=== PATIENT | male | born 1990 ===

== ENCOUNTER 2024-05-31 17:14 | Emergency (ER) | payer OTHER, SELFPAY ==
[2024-05-31] VITALS (9 sets, daily range): BP systolic 131–164; BP diastolic 70–89; PULSE 111–121; BMI 25.3
--- NOTE | 2024-05-31 19:13 | ED.GENMED ---
History of Present Illness
General
Chief Complaint: Weakness
Source: patient and operations project manager
Exam Limitations: none
Time Seen by Provider: 05/31/24 18:57
History of Present Illness
History of Present Illness:
34-year-old male. 2 weeks of lightheadedness near syncope mostly with standing. No chest pain shortness of breath headache fever chills infectious symptoms etc. No black or bloody stools. No abdominal pain. Feels okay at rest but gets
lightheaded with standing.
Past History
Past History
ED Past Medical History: None
Social History
Tobacco: Non-smoker
Alcohol: Occasional
Review of Systems
Review of Systems
All Other Systems: Not applicable
Constitutional: Denies fever or chills
Respiratory: Denies trouble breathing
Cardiac: Denies chest pain or diaphoresis
Phy Exam
Physical Exam
Physical Exam:
GENERAL: Alert and oriented in no apparent distress
EYE: Orbits normal.
NECK: Supple, no thyroid palpable
ENT: Pharynx without erythema
CARDIAC: Mildly tachycardic irregular no murmur
LUNGS: Clear breath sounds,normal
ABDOMEN: Soft, without focal tenderness or distention
NEUROLOGICAL: Alert and oriented , grossly non-focal
SKIN: Warm and dry, no rash or lesion, no discoloration, skin intact.
MUSCULOSKELETAL: No edema,no deformity.Good color
PSYCH: Normal and appropriate interaction.
Course
Orders/Labs/Results
Orders:
Orders
05/31/24 17:31
EKG [Electrocardiogram (*1)] Urgent
Reason for Study: Vertigo / Dizzy
05/31/24 17:32
EKG- Treatment ONCE
05/31/24 19:09
IV Insert/Care/Rem.- Treatment PRN
Orthostatic VS- Treatment ONCE
0.9% Sodium Chloride 1000 ml [Nss] 1,000 ml IV BOLUS
Pulse Ox/cont/shift [RESP] Stat
Quantity: 1
05/31/24 19:10
Cardiac Monitoring- Treatment ONCE
CR Chest - 2 Views Urgent
Comment:
Reason For Exam: Near syncope/tachycardia
05/31/24 19:25
Complete Blood Count/With Diff Urgent
Comprehensive Metabolic Panel Urgent
D-Dimer Urgent
NT-proBNP Urgent
Comment: ADD ON
TSH Reflex To Free T4 Urgent
Troponin I Urgent
05/31/24 20:20
Urinalysis Reflex To Culture Urgent
Date Specimen was Collected: 05/31/24
Time Specimen was Collected: 20:19
Urine Microscopic Reflex Cult Urgent
05/31/24 21:06
Add On- LAB Urgent
Tests Added?: probnp
05/31/24 21:07
CT Chest/abd/pel W Iv Cont Urgent
Comment:
Reason For Exam: Tachycardia fever/hematuria
Abnormal Lab Results
05/31/24 05/31/24
19:25 20:20
WBC 12.0 H 10^3/uL
(4.8-10.8)
RBC 6.56 H 10^6/uL
(4.70-6.10)
Hgb 12.9 L g/dL
(13.0-18.0)
MCV 62.8 L fL
(80.0-94.0)
MCH 19.7 L pg
(27.0-31.0)
MCHC 31.3 L g/dL
(33.0-37.0)
RDW 17.7 H %
(11.5-14.5)
MPV 10.6 H fL
(7.4-10.4)
Absolute Neuts (auto) 9.7 H 10^3/uL
(1.4-6.5)
Absolute Monos (auto) 0.7 H 10^3/uL
(0.1-0.6)
Neutrophils % 81.5 H %
(42.2-75.2)
Lymphocytes % 12.0 L %
(20.5-51.1)
Glucose 122 H mg/dl
(70-99)
Total Bilirubin 1.5 H mg/dl
(0.2-1.3)
ALT 52 H U/L
(0-50)
Ur Occult Blood Reflex 1+ A
(Negative)
05/31/24 19:25
05/31/24 19:25
Vital Signs
Initial and Last Documented VS:
Initial Vital Signs
Temp Pulse Resp BP Pulse Ox
98.5 F 109 18 132/89 99
05/31/24 17:27 05/31/24 17:27 05/31/24 17:27 05/31/24 17:27 05/31/24 17:27
Last Documented Vital Signs
Temp Pulse Resp BP Pulse Ox
98.5 F 100 20 131/74 99
05/31/24 17:27 05/31/24 23:15 05/31/24 23:00 05/31/24 23:00 05/31/24 23:15
*Radiology
Radiology exam reviewed: radiology read reviewed (No acute findings. Granuloma right upper lung. Otherwise unremarkable.)
*Pulse Oximetry
Patient hypoxic: no
*Critical Care Note
Total Time (30-74mins, 75-104mins- exclusive of procedures): Not Applicable
Update Note
Update Note:
Patient with a thorough workup. No serious etiology found for his tachycardia and lightheadedness. No pulmonary emboli negative D-dimer. Cardiac testing stable. Nonspecific EKG changes but normal troponin. No heart failure. No sign of
significant infection with a negative CT scan negative urine negative chest. Currently patient's heart rate is in the low 90s and he is stable. Discharged to follow-up
ED Attending Note
-
Portions of this chart may have been created with voice recognition software.� Occasional wrong word or��sound alike� substitutions may have occurred due to the inherent limitations of voice recognition software.
Discharge Plan
Departure
Patient Disposition: Home (Routine Discharge)
Date of Disposition: 05/31/24
Time of Disposition: 23:20
Patient with high blood pressure during this ER visit?: Yes
Discharge Problem:
Dizziness/orthostatic hypotension, Dehydration
Instructions: Generalized Weakness (DC), Dehydration in adults - ED discharge instructions, BLOOD PRESSURE
Referrals:
[facility] [Provider Group] - Next open appointment
NONE,* [Family Provider] -
Activity Restrictions/Additional Instructions:
Stay well-hydrated
You should find a regular physician. The family practice residency program runs a nice family practice office
Return with increased lightheadedness fever chest pain shortness of breath abdominal pain or any other unusual symptoms
Get rechecked if symptoms have not resolved in 2 to 4 days
Interventions
Interventions:
*Risk Screen - Suicide Last Done: 05/31/24 17:27
*General Assessment Last Done: 05/31/24 17:27
*Neglect/Abuse Screening Last Done: 05/31/24 17:27
ED- Fall Risk Assessment Last Done: 05/31/24 19:15
*ED COVID-19 Vaccine History Last Done: 05/31/24 17:27
ED- Cardiac Assessment Last Done: 05/31/24 19:15
ED- Neurological Assessment Last Done: 05/31/24 19:15
ED- Pulmonary Assessment Last Done: 05/31/24 19:15
Discharge Date and Time
Print Language: SLOVAK
[2024-05-31] MEDS: NSS 1000 IV (19:26)
[2024-05-31 19:32] LABS: % Basophils 0.3 % (0-2); % Immature Granulocytes 0.3 % (0-0.5); % Monocytes 5.9 % (1.7-9.3); % Neutrophils 81.5 % (42.2-75.2); Absolute Lymphocytes 1.4 10^3/uL (1.2-3.4); Absolute Monocytes 0.7 10^3/uL (0.1-0.6); Absolute Neutrophils 9.7 10^3/uL (1.4-6.5); Hematocrit 41.2 % (39.0-52.0); Hemoglobin 12.9 g/dL (13.0-18.0); Mean Corp Hgb Conc. 31.3 g/dL (33.0-37.0); Mean Corpuscular Hgb 19.7 pg (27.0-31.0); Mean Corpuscular Volume 62.8 fL (80.0-94.0); Mean Platelet Volume 10.6 fL (7.4-10.4); Nucleated Red Blood Cells % 0 % (-); Platelet Count 243 10^3/uL (130-400); Red Blood Cell Count 6.56 10^6/uL (4.70-6.10); Red Cell Dist. Width 17.7 % (11.5-14.5)
[2024-05-31 19:56] LABS: Troponin I < 0.012 ng/ml
[2024-05-31 19:57] LABS: D-Dimer < 0.27 ug/mlFEU (0.00-0.50)
[2024-05-31 20:08] LABS: ALT (SGPT) 52 U/L (0-50); AST (SGOT) 33 U/L (17-59); Alkaline Phosphatase 81 U/L (38-126); Blood Urea Nitrogen 13 mg/dl (9-20); Calcium 9.6 mg/dl (8.4-10.2); Carbon Dioxide 26 mmol/L (22-30); Chloride 99 mmol/L (98-107); Glucose 122 mg/dl (70-99); Sodium 138 mmol/L (135-145); Total Bilirubin 1.5 mg/dl (0.2-1.3); Total Protein 8.2 g/dl (6.3-8.2); eGFR > 60.00
[2024-05-31 20:14] LABS: Potassium 4.2 mmol/L (3.5-5.1)
[2024-05-31 20:27] LABS: TSH Reflex To Free T4 1.22 uIU/ml (0.47-4.68)
[2024-05-31 20:39] LABS: Urine Albumin Negative (Neg - Trace); Urine Bilirubin Negative (Negative); Urine Character Clear (Clear); Urine Color Yellow; Urine Glucose Negative (Negative); Urine Ketone Negative (Negative); Urine Leukocyte Negative (Negative); Urine Nitrite Negative (Negative); Urine Occult Blood 1+ (Negative); Urine Urobilinogen Negative (Neg - 1+)
[2024-05-31 21:46] LABS: Urine Squamous Cell 0-2 /LPF (Few)
[2024-05-31 21:47] LABS: Urine Red Blood Cell 0-2 /HPF (0-2)
[2024-05-31 22:04] LABS: NT-proBNP < 20.0 pg/ml
== END 2024-05-31 23:32 | disposition home or self-care (01) ==
LOC: EMR 17:14
PROVIDERS: EMERGENCY PHYSICIAN Emergency Medicine
DX: R55 Syncope and collapse (principal); I95.1 Orthostatic hypotension; R00.0 Tachycardia, unspecified; E86.0 Dehydration; R03.0 Elevated blood-pressure reading, without diagnosis of hypertension; J84.10 Pulmonary fibrosis, unspecified
CPT/HCPCS: 99285; 96361; 96360; 94760; 71046; 71260; 74177; 80053; 81003; 81015; 83880; 84443; 84484; 85025; 85379; 93005; Q9967